=== PATIENT | female | born 1970 | race African-American/Black ===

== ENCOUNTER 2016-12-29 08:44 | Emergency (ER) | payer OTHER ==
[~2016-12-29] VITALS: Ht 162.6 cm; Wt 56.5 kg
[~2016-12-29 08:44] MED LIST: CELE10TA PO; ZYPR20TA PO
[2016-12-29 08:45] VITALS: BP 126/97; PULSE 86; RESP 18; TEMP 98.6; O2SAT 99
[2016-12-29] MEDS ORDERED: AZITHROMYCIN PWD FOR SUSP 1 GM PACKET PO ONE (09:15)
[2016-12-29] MEDS ORDERED: LIDOCAINE HCL 1% 50 ML VIAL IM ONE (09:15)
--- NOTE | 2016-12-29 09:18 | PD ---
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 Patient reports that for the past week, she has had a thick yellow vaginal discharge. She reports that she is actually active with 2 sexual partners, she does not use any contraceptives/condoms.. Patient reports that she is not having any abdominal pain or cramping, reports concerns for possible STD as she has had trichamonous in the past. Patient with no fevers or chills, no other complaints. PFSH Past Medical History Medical History: Denies Significant Hx Depression: Yes Diminished Hearing: No Psychiatric: Yes (ocd) Immunizations Current: Yes ?: Not LMP: 12/10/16 : 2 Para: 1 Miscarriage: 1 Past Surgical History Surgical History: No Previous Surgery Section: Yes Social History Alcohol Use: No Tobacco Use: No Substance Use: No Allergies-Medications (Allergen,Severity, Reaction): Coded Allergies: No Known Allergies (Verified , 05/12/15) Reported Meds & Prescriptions Reported Meds & Active Scripts Active No Active Prescriptions or Reported Medications Review of Systems General / Constitutional: No: Fever Eyes: No: Visual changes HENT: No: Headaches Cardiovascular: No: Chest Pain or Discomfort Respiratory: No: Shortness of Breath Gastrointestinal: No: Nausea, Vomiting, Diarrhea, Abdominal Pain Genitourinary: Positive: Discharge, No: Urgency, Frequency, Dysuria, Pelvic Pain, Flank Pain, Vaginal Bleeding Musculoskeletal: No: Pain Skin: No Rash Neurologic: No: Weakness Psychiatric: No: Depression Endocrine: No: Polydipsia Hematologic/Lymphatic: No: Easy Bruising Physical Exam Narrative GENERAL: NAD SKIN: Focused skin assessment warm/dry. HEAD: Atraumatic. Normocephalic. EYES: Pupils equal and round. No scleral icterus. No injection or drainage. ENT: No nasal bleeding or discharge. Mucous membranes pink and moist. NECK: Trachea midline. No JVD. CARDIOVASCULAR: Regular rate and rhythm. No murmur appreciated. RESPIRATORY: No accessory muscle use. Clear to auscultation. Breath sounds equal bilaterally. GASTROINTESTINAL: Abdomen soft, non-tender, nondistended. Hepatic and splenic margins not palpable. : exam performed with RN at bedside, patient with thick yellowish vaginal discharge, no cmt or adnexal tenderness MUSCULOSKELETAL: No obvious deformities. No clubbing. No cyanosis. No edema. NEUROLOGICAL: Awake and alert. No obvious cranial nerve deficits. Motor grossly within normal limits. Normal speech. PSYCHIATRIC: Appropriate mood and affect; insight and judgment normal. Data Data Last Documented VS Vital Signs Date Time Temp Pulse Resp B/P Pulse Ox O2 Delivery O2 Flow Rate FiO2 12/29/16 08:45 98.6 86 18 126/97 99 Room Air Orders Gc And Chlamydia Pcr (12/29/16 09:03) Wet Prep Profile (12/29/16 09:03) Urinalysis - C+S If Indicated (12/29/16 09:03) Ed Urine Pregnancytest Poc (12/29/16 09:03) Azithromycin Powd Pack (Zithromax Powd P (12/29/16 09:15) Lidocaine 1% Inj (50 Ml) (Xylocaine 1% I (12/29/16 09:15) Ceftriaxone Inj (Rocephin Inj) (12/29/16 09:15) Urine Culture (12/29/16 09:21) Labs Laboratory Tests Test 12/29/16 09:21 Urine Color YELLOW Urine Turbidity HAZY Urine pH 6.0 Urine Specific [place] 1.031 Urine Protein 30 mg/dL Urine Glucose (UA) NEG mg/dL Urine Ketones TRACE mg/dL Urine Occult Blood NEG Urine Nitrite NEG Urine Bilirubin NEG Urine Urobilinogen 4.0 MG/DL Urine Leukocyte Esterase LARGE Urine RBC 2 /hpf Urine WBC 53 /hpf Urine WBC Clumps RARE Urine Squamous Epithelial 6 /hpf Cells Urine Bacteria MANY /hpf Urine Mucus FEW /lpf Microscopic Urinalysis Comment CULTURE INDICATED Clue Cells (Wet Prep) PRESENT Vaginal Trichomonas (Wet Prep) NONE SEEN Vaginal Yeast (Wet Prep) NONE SEEN MDM Medical Decision Making Medical Screen Exam Complete: Yes Emergency Medical Condition: Yes Interpretation(s) Vital Signs Date Time Temp Pulse Resp B/P Pulse Ox O2 Delivery O2 Flow Rate FiO2 12/29/16 08:45 98.6 86 18 126/97 99 Room Air Differential Diagnosis Differential includes cervicitis, UTI, BV, yeast infection Narrative Course 46-year-old female who presents to emergency room for evaluation of vaginal discharge for the past week. Patient with no abdominal pain, nausea vomiting or diarrhea. Patient with no fevers or chills. Patient reports history of trichomonas in the past, reports concerns for possible STD as she has 2 sexual partners and does not use any condoms. On pelvic exam, patient does not have any CMT or adnexal tenderness, she has had thick yellow discharge. Patient request be treated for possible gonorrhea/chlamydia. Patient understands that she must abstain from sexual intercourse until all cultures are resulted and all sexual partners have been treated. Patient will follow-up with all cultures from today. Microbiology Date/Time Procedure Status Source Growth 12/29/16 09:21 Urine Culture Received Urine Clean Catch Pending patient positive for UTI as well as positive for clue cells - will treat for uti as well as BV Diagnosis Primary Impression: Cervicitis Additional Impressions: BV (bacterial vaginosis) UTI (urinary tract infection) Patient Instructions: General Instructions Additional Instructions: Please follow-up with all cultures from today If cultures are positive, you will need to notify all sexual partners as they will all need to be treated Refrain from sexual intercourse until cultures have resulted 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
[2016-12-29 10:36] LABS: BACTERIA, URINE MANY /hpf; BLOOD, URINE NEG (NEG); COMMENT (UR) CULTURE INDICATED; CULTURE IF INDICATED CULTURE INDICATED; GLUCOSE,URINE NEG (NEG); KETONE, URINE TRACE mg/dL (NEG); MUCUS URINE FEW /lpf (OCC); NITRITE,URINE NEG (NEG); SQUAMOUS EPITHELIAL CELL URINE 6 /hpf (0-5); URINE COLOR YELLOW (YELLW/STRAW)
[2016-12-29] MEDS ORDERED: MACR100C2 PO (10:49)
[2016-12-29] MEDS ORDERED: METR-1 PO (10:49)
[2016-12-29 12:21] LABS: CHLAMYDIA PCR NOT DETECTED (NOT DETECT); NEISSERIA PCR NOT DETECTED (NOT DETECT)
== END 2016-12-29 11:09 | disposition home or self-care (01) ==
LOC: NEPD 08:44
DX: N72 Inflammatory disease of cervix uteri (principal); N76.0 Acute vaginitis; N39.0 Urinary tract infection, site not specified
CPT/HCPCS: 81001; 84703; 87077; 87086; 87186; 87210; 87491; 87591; 96372; 99284; J0696

== ENCOUNTER 2017-06-18 17:37 | Emergency (ER) | payer OTHER ==
[~2017-06-18] VITALS: Ht 165.1 cm; Wt 52.5 kg
[~2017-06-18 17:37] MED LIST changes: -CELE10TA PO; +MACR100C2 PO; +METR-1 PO; -ZYPR20TA PO
[2017-06-18 17:38] VITALS: BP 134/81; PULSE 81; RESP 14; TEMP 97.8; O2SAT 100
[2017-06-18] MEDS ORDERED: RISP.25 PO (17:50)
[2017-06-18] MEDS ORDERED: CELE10TA PO (17:50)
[2017-06-18] MEDS ORDERED: METR1GEL TOPICAL (18:14)
--- NOTE | 2017-06-18 18:15 | PD ---
HPI Chief Complaint: Skin Problem Time Seen by Provider: 18:02 Travel History International Travel<30 days: No Contact w/Intl Traveler<30days: No Traveled to known affect area: No History of Present Illness HPI 47-year-old female complains of facial rash. Patient states that she has recurrent rash on the face for the past few years. Patient has not seen any physician for that. Patient denies any itching or burning or pain associated with the facial rash. Patient denies any history of medical problem. PFSH Past Medical History Depression: Yes Diminished Hearing: No Psychiatric: Yes (ocd) Immunizations Current: Yes ?: Not LMP: MAY 20 : 2 Para: 1 Miscarriage: 1 Past Surgical History Section: Yes Social History Alcohol Use: Yes (OCCASSIONAL) Tobacco Use: No Substance Use: No Allergies-Medications (Allergen,Severity, Reaction): Coded Allergies: No Known Allergies (Verified Adverse Reaction, Unknown, 06/18/17) Reported Meds & Prescriptions Reported Meds & Active Scripts Active Reported Risperdal (Risperidone) 0.25 Mg Tab Mg PO DAILY Celexa (Citalopram Hydrobromide) 10 Mg Tab Mg PO DAILY Review of Systems General / Constitutional: No: Fever Eyes: No: Visual changes HENT: No: Headaches Cardiovascular: No: Chest Pain or Discomfort Respiratory: No: Shortness of Breath Gastrointestinal: No: Abdominal Pain Genitourinary: No: Dysuria Musculoskeletal: No: Pain Skin: Positive Rash Neurologic: No: Weakness Psychiatric: No: Depression Endocrine: No: Polydipsia Hematologic/Lymphatic: No: Easy Bruising Physical Exam Narrative GENERAL: Well-nourished, well-developed patient. SKIN: Focused skin assessment warm/dry. HEAD: Normocephalic. EYES: No scleral icterus. No injection or drainage. NECK: Supple, trachea midline. No JVD or lymphadenopathy. CARDIOVASCULAR: Regular rate and rhythm without murmurs, gallops, or rubs. RESPIRATORY: Breath sounds equal bilaterally. No accessory muscle use. GASTROINTESTINAL: Abdomen soft, non-tender, nondistended. MUSCULOSKELETAL: No cyanosis, or edema. BACK: Nontender without obvious deformity. No CVA tenderness. Patient has scaly patchy rash paraoral area and around the nose. Nontender on palpation. No discharge. Data Data Last Documented VS Vital Signs Date Time Temp Pulse Resp B/P (MAP) Pulse Ox O2 Delivery O2 Flow Rate FiO2 06/18/17 17:38 97.8 81 14 134/81 (98) 100 MDM Medical Decision Making Medical Screen Exam Complete: Yes Emergency Medical Condition: Yes Differential Diagnosis Differential diagnosis including perioral dermatitis, rosacea, allergic reaction. Narrative Course 47-year-old female with recurrent frances-oral rash on the face. Diagnosis Primary Impression: Perioral dermatitis Patient Instructions: General Instructions Additional Instructions: [employer] as directed. Follow-up with data communications technician. Med/Other Pt SpecificInfo: Prescription(s) given Scripts Metronidazole Topical (Metrogel Topical) 1 % Gel 1 APPLIC TOPICAL DAILY for Infection, #1 TUBE 0 Refills Prov: Deven Brito MD 06/18/17 Disposition: 01 DISCHARGE HOME Condition: Stable Deven Brito MD Jun 18, 2017 18:15
== END 2017-06-18 18:53 | disposition home or self-care (01) ==
LOC: NEPD 17:37
DX: L71.0 Perioral dermatitis (principal); F32.9 Major depressive disorder, single episode, unspecified; F42.9 Obsessive-compulsive disorder, unspecified
CPT/HCPCS: 99283